=== PATIENT | male | born 1990 | race Caucasian/White ===

== ENCOUNTER 2017-02-26 13:58 | Emergency (ER) | payer OTHER ==
[2017-02-26 14:06] VITALS: BP 108/77; PULSE 80; TEMP 98.2; BMI 23.3
[2017-02-26] MEDS ORDERED: KETOROLAC TROMETHAMINE 60 MG/2 ML VIAL IM ONE (14:23)
[2017-02-26] MEDS ORDERED: KETOROLAC TROMETHAMINE 60 MG/2 ML VIAL ONE (14:26)
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
== END 2017-02-26 15:16 | disposition home or self-care (01) ==
LOC: JERFT 13:58
PROC: 3E0233Z Introduction of Anti-inflammatory into Muscle, Percutaneous Approach (ICD-10-PCS; principal; 2017-02-26)
DX: R07.89 Other chest pain (principal); M25.552 Pain in left hip; Y04.2XXD Assault by strike against or bumped into by another person, subsequent encounter
CPT/HCPCS: 71101-TC-RT; 73523-TC; 96372; 99281-25

== ENCOUNTER 2017-03-16 17:25 | Emergency (ER) | payer OTHER ==
[2017-03-16 17:36] VITALS: BP 128/65; PULSE 95; TEMP 98.5
[2017-03-16] MEDS ORDERED: DIPHTH,PERTUSS(ACELL),TET 0.5 ML DISP.SYRIN IM ONE (18:15)
[2017-03-16] MEDS ORDERED: KETOROLAC TROMETHAMINE 60 MG/2 ML VIAL IM ONE (18:17)
[2017-03-16] MEDS ORDERED: KETOROLAC TROMETHAMINE 60 MG/2 ML VIAL ONE (18:19)
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
[2017-03-16 18:30] LABS: URINE APPEARANCE CLEAR; URINE BILIRUBIN NEGATIVE (NEGATIVE); URINE BLOOD NEGATIVE (NEGATIVE); URINE COLOR YELLOW; URINE GLUCOSE (UA) NEGATIVE (NEGATIVE); URINE KETONE NEGATIVE (NEGATIVE); URINE LEUK ESTERASE NEGATIVE (NEGATIVE); URINE NITRITE NEGATIVE (NEGATIVE); URINE PROTEIN NEGATIVE (NEGATIVE); URINE UROBILINOGEN NEGATIVE E.U./dl (0.2-1.0)
== END 2017-03-16 19:38 | disposition home or self-care (01) ==
LOC: JERFT 17:25
PROC: 3E0234Z Introduction of Serum, Toxoid and Vaccine into Muscle, Percutaneous Approach (ICD-10-PCS; principal; 2017-03-16)
PROC: 3E0233Z Introduction of Anti-inflammatory into Muscle, Percutaneous Approach (ICD-10-PCS; 2017-03-16)
DX: S00.81XA Abrasion of other part of head, initial encounter (principal); S10.84XA External constriction of other specified part of neck, initial encounter; M54.5 Low back pain; Y04.2XXA Assault by strike against or bumped into by another person, initial encounter; Y93.89 Activity, other specified; Y92.89 Other specified places as the place of occurrence of the external cause; Y99.8 Other external cause status; Y07.9 Unspecified perpetrator of maltreatment and neglect
CPT/HCPCS: 71020-TC; 71111-TC; 72070-TC; 72100-TC; 81003; 90715; 99281-25

== ENCOUNTER 2018-11-17 13:05 | Emergency (ER) | payer OTHER ==
[2018-11-17 13:16] VITALS: BP 121/74; PULSE 95; TEMP 98.7; BMI 22.1
[2018-11-17] MEDS ORDERED: ONDANSETRON *ODT* 4 MG TABLET SL ONE (14:15)
--- NOTE | 2018-11-17 14:16 | PDOC ---
History of Present Illness - General Chief Complaint: Nausea/Vomiting Stated Complaint: NAUSEA/VOMITING Time Seen by Provider: 11/17/18 14:06 History Source: Patient Exam Limitations: No Limitations Past History - Past Medical History Allergies/Adverse Reactions: Allergies Allergy/AdvReac Type Severity Reaction Status Date / Time No Known Allergies Allergy Verified 11/17/18 13:16 Home Medications: Ambulatory Orders No Home Medications 0 dose .ROUTE UTDICT 05/15/13 Ibuprofen [Motrin -] 600 mg PO QID #28 tablet 02/26/17 Cyclobenzaprine HCl [Flexeril 10 mg] 5 mg PO BID PRN #15 tablet 03/16/17 Naproxen [Naprosyn -] 500 mg PO BID PRN #14 tablet 03/16/17 Ondansetron [Zofran Odt -] 4 mg SL BID PRN #14 od.tablet 11/17/18 Asthma: Yes COPD: No - Immunization History Td Vaccination: Yes TDAP Vaccination: Yes Immunization Up to Date: Yes - Suicide/Smoking/Psychosocial Hx Smoking Status: No Smoking History: Never smoked Have you smoked in the past 12 months: No Number of Cigarettes Smoked Daily: 2 Information on smoking cessation initiated: No Hx Alcohol Use: No Drug/Substance Use Hx: No Substance Use Type: None *Physical Exam - Vital Signs Last Vital Signs Temp Pulse Resp BP Pulse Ox 98.7 F 95 H 16 121/74 100 11/17/18 13:14 11/17/18 13:14 11/17/18 13:14 11/17/18 13:14 11/17/18 13:14 - Physical Exam General Appearance: No: Apparent Distress Respiratory/Chest: positive: Lungs Clear, Normal Breath Sounds. negative: Respiratory Distress Cardiovascular: positive: Regular Rhythm, Regular Rate, S1, S2. negative: Murmur Gastrointestinal/Abdominal: positive: Normal Bowel Sounds, Soft. negative: Tender, Distended, Guarding, Rebound Integumentary: positive: Normal Color Neurologic: positive: Alert, Normal Mood/Affect Moderate Sedation - Procedure Monitoring Vital Signs: Procedure Monitoring Vital Signs Temperature 98.7 F 11/17/18 13:14 Pulse Rate 95 H 11/17/18 13:14 Respiratory Rate 16 11/17/18 13:14 Blood Pressure 121/74 11/17/18 13:14 O2 Sat by Pulse Oximetry (%) 100 11/17/18 13:14 Medical Decision Making - Medical Decision Making 27 y/o M with no sig pmh presents with NBNB emesis from today at 9 AM along with an episode of watery diarrhea. Mentions having empanadas, peanut butter sandwiches and 1 can of beer last night and then symptoms started today. Feels some slight achy abdominal pain from the emesis. Denies fever, chills, sob, cp, bloody stools. Denies heavy alcohol use. Patient appears well; PE unremarkable Likely viral gastroenteritis Plan: SL Zofran, PO challenge 11/17/18 14:16 Patient tolerating PO Stable for dc 11/17/18 15:45 *DC/Admit/Observation/Transfer Diagnosis at time of Disposition: Gastroenteritis - Discharge Dispostion Disposition: HOME Condition at time of disposition: Stable Decision to Admit order: No - Prescriptions Prescriptions: Ondansetron [Zofran Odt -] 4 mg SL BID PRN #14 od.tablet PRN Reason: Nausea - Referrals - Patient Instructions Printed Discharge Instructions: DI for Viral Gastroenteritis -- Adult Additional Instructions: Thank you for choosing [facility]. It was a pleasure taking care of you. Likely you have viral infection Take Zofran if needed for nausea Recommend bland diet such as bananas, rice, applesauce, plain toast, plain yogurt until feeling better Follow-up with your PCP in 2-3 days Return to the Emergency Department if your symptoms worsen or persist or have other concerning symptoms. - Post Discharge Activity
[2018-11-17] MEDS ORDERED: ONDANSETRON *ODT* 4 MG TABLET ONE (14:53)
== END 2018-11-17 16:13 | disposition home or self-care (01) ==
LOC: JER 13:05
DX: K52.9 Noninfective gastroenteritis and colitis, unspecified (principal)
CPT/HCPCS: 99282-25; Q0162

== ENCOUNTER 2019-10-13 00:44 | Emergency (ER) | payer OTHER ==
[2019-10-13 01:43] VITALS: BP 120/70; PULSE 95; TEMP 98; BMI 22.1
[2019-10-13] MEDS ORDERED: ACETAMINOPHEN 325 MG TABLET (FP) PO ONE (03:01)
[2019-10-13] MEDS ORDERED: LIDOCAINE 5% TOPICAL PATCH TP ONE (03:01)
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
[2019-10-13] MEDS ORDERED: ACETAMINOPHEN 325 MG TABLET (FP) ONE (03:06)
[2019-10-13] MEDS ORDERED: LIDOCAINE 5% TOPICAL PATCH ONE (03:06)
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
[2019-10-13] MEDS ORDERED: LIDOCAINE PATCH REMOVAL MC SCH (22:00)
== END 2019-10-13 04:44 | disposition home or self-care (01) ==
LOC: JER 00:44
PROC: 2W3BXYZ Immobilization of Left Upper Arm using Other Device (ICD-10-PCS; principal; 2019-10-13)
DX: S43.102A Unspecified dislocation of left acromioclavicular joint, initial encounter (principal); Y04.0XXA Assault by unarmed brawl or fight, initial encounter; Y93.89 Activity, other specified; Y92.238 Other place in hospital as the place of occurrence of the external cause; Y99.8 Other external cause status
CPT/HCPCS: 29240; 73000-TC-LT-FY; 73030-TC-LT-FY; 73060-TC-LT-FY; 99282-25